=== PATIENT | female | born 1955 | race Caucasian/White ===

== ENCOUNTER 2025-09-13 23:38 | Inpatient (IN) | payer OTHER, SELFPAY ==
[2025-09-13 15:53] VITALS: BP 137/105
[2025-09-13 19:20] VITALS: BMI 21.2
--- NOTE | 2025-09-13 19:20 | ED.GENMED ---
History of Present Illness
General
Chief Complaint: Facial Problem
Source: patient, spouse and family
Exam Limitations: none
Time Seen by Provider: 09/13/25 19:03
Nursing documentation reviewed up to this point in time: agreed with
History of Present Illness
History of Present Illness:
69-year-old female with a past medical history as noted significant for hypertension, hyperlipidemia, diabetes and trigeminal neuralgia who presents to the ER for evaluation of intermittent facial pain consistent with trigeminal neuralgia symptoms.
Patient reports that she has been dealing with trigeminal neuralgia for about 3 years now status post a dental extraction. She says that she has been following with a neurologist through [facility] named Dr. Camp. She says that
initially she was trialed on oxcarbazepine followed by gabapentin both of which failed to control her symptoms before ultimately starting baclofen. She says symptoms had been very well-controlled on baclofen for the past 2 years to the point that a
little over a month ago she requested to titrate down off of this medication. Dose had decreased all the way down to 10 mg twice daily but over the past few weeks she started to notice mild 'twinges' of pain in the right face. Over the past week
she says she has had multiple daily episodes of extreme pain that she describes sharp debilitating pain that last for 5 to 10 minutes in the right side of her face essentially from the corner of the mouth towards the ear. It seems to be set off by
movement of the face, light touch or temperature change. She discussed this increase in her symptoms with her neurologist earlier this week and was told to increase her baclofen to 15 mg 3 times daily which she has been doing for 5 days. Despite
this she is still having severe episodes to the point that she was not able to even drink water or take her medicine today for fear of setting symptoms off. Her family brought her to the ER to be evaluated.
Past History
Past History
ED Past Medical History: Cancer, HTN, NIDDM and Other (ulcerative colitis, breast ca with met to lung with right mastectomy and right lung resection 7 years ago)
ED Past Surgical History: Other
Social History
Tobacco: Non-smoker
Alcohol: None
Drug: None
Personal:
Living: with family
Review of Systems
Review of Systems
All Other Systems: ROS reviewed and negative except as documented in HPI and ROS
Constitutional: Denies fever
EENT: Reports other (Facial pain)
Respiratory: Denies trouble breathing
Cardiac: Denies chest pain
ABD/GI: Denies abdominal pain
Skin: Denies rash
Neurological: Denies dizzy
Phy Exam
Physical Exam
Physical Exam:
General: Awake, alert, oriented x3; no acute distress
Head: Normocephalic, atraumatic
Eyes: Conjunctiva normal, EOMI
Face: No rash or erythema in the area of concern, no reproducible tenderness
Throat: Airway intact, handling secretions, tongue atraumatic, generally good dentition, no oral lesions noted�she does have hesitancy on opening her mouth due to fear of symptoms
Neck: Trachea midline, supple without meningismus, no lymphadenopathy appreciated
Lungs: Breathing comfortably without distress
Heart: Regular rate
Neuro: Cranial nerves grossly intact, speech fluid, motor and sensory grossly intact
Skin: Warm and dry
Extremities: Warm and well-perfused
Scores
Heart Failure Risk
Heart Failure Risk Score: Not Applicable
Heart Score for Chest Pain Patients
STEMI patient?: Not applicable
Withdrawal Assessment of Alcohol
Withdrawal Assessment Completed?: Not applicable
Course
Orders/Labs/Results
Orders:
Orders
09/13/25 19:16
0.9% Sodium Chloride 1000 ml [Nss] 1,000 ml IV BOLUS
09/13/25 19:30
Complete Blood Count/With Diff Urgent
Comprehensive Metabolic Panel Urgent
09/13/25 20:42
Phenytoin Sodium [Dilantin] 250 mg IV NOW STA
09/13/25 23:00
Baclofen [Lioresal] 20 mg PO ONCE ONE
Abnormal Lab Results
09/13/25
19:30
Absolute Neuts (auto) 6.7 H 10^3/uL
(1.4-6.5)
Neutrophils % 76.4 H %
(42.2-75.2)
Lymphocytes % 16.6 L %
(20.5-51.1)
Glucose 119 H mg/dl
(70-99)
Calcium 10.4 H mg/dl
(8.4-10.2)
AST 37 H U/L
(14-36)
Total Protein 8.6 H g/dl
(6.3-8.2)
Albumin 5.2 H g/dl
(3.5-5.0)
09/13/25 19:30
09/13/25 19:30
Vital Signs
Initial and Last Documented VS:
Initial Vital Signs
Temp Pulse Resp BP Pulse Ox
36.8 C 99 16 137/105 96
09/13/25 15:53 09/13/25 15:53 09/13/25 15:53 09/13/25 15:53 09/13/25 15:53
Last Documented Vital Signs
Temp Pulse Resp BP Pulse Ox
36.8 C 85 18 111/89 96
09/13/25 15:53 09/13/25 22:00 09/13/25 22:00 09/13/25 22:00 09/13/25 22:00
MDM/Problems Addressed
Differential Diagnosis Includes:
Trigeminal neuralgia, TMJ, dental infection
MDM/Problems Addressed:
69-year-old female presents with poorly controlled trigeminal neuralgia symptoms�she has been dealing with this for 3 years but had been well-controlled on baclofen to the point of titrating down; unfortunately with down titration of her baclofen
her symptoms have started to flareup more severely which prompted ER visit. Vitals and exam are as above. Fortunately right now she is not having pain but she says that it takes very little to set off a severe episode that usually will last for
about 5 to 10 minutes and is debilitating. Even drinking water to take her medicine this is enough to flare off an episode and so she has not had anything to drink and was not able to take most of her medicine today. Plan to check basic labs and
provide some IV fluids and can trial some IV phenytoin for refractory symptoms. Will discuss the case with neurology for further recommendations.
Discussed with neurology down at [place] on-call for patient's usual neurologist�recommended increasing dose of baclofen to 20 mg 3 times daily to try and control symptoms better. Will plan to reassess symptoms after phenytoin and fluids and if able
to tolerate p.o. can trial increased dose of baclofen.
Symptoms did improve with phenytoin and patient was able to take p.o. baclofen with some water here. Continue to observe for now.
Patient having rebound symptoms despite medications as above. Discussed with neurology for consult. Will admit for continued care. Discussed with hospitalist.
Chronic conditions affecting care:
Trigeminal neuralgia
*Pulse Oximetry
SaO2: 96
Oxygen Mode of Delivery: Room air
Patient hypoxic: no (96%)
*Critical Care Note
Total Time (30-74mins, 75-104mins- exclusive of procedures): Not Applicable
Patient Management
Discussion with other providers: Hospitalist (Discussed with hospitalist) and Tube Lancer (Discussed with neurologist)
Escalation/DeEscalation of care consider admission/obs:
Admission indicated
ED Attending Note
-
Portions of this chart may have been created with voice recognition software.� Occasional wrong word or��sound alike� substitutions may have occurred due to the inherent limitations of voice recognition software.
Discharge Plan
Departure
Patient Disposition: Admit
Date of Disposition: 09/13/25
Time of Disposition: 23:14
Admit to doctor: Joe
Presentation/result/management discussed w/ accepting MD/DO: Hospitalist
Discharge Problem:
Right trigeminal neuralgia
Prescriptions:
No Action
metoprolol succinate 50 MG tablet extended release 24 hr
50 mg PO DAILY
atorvastatin 20 mg Tablet
20 mg PO HS
aspirin 81 mg Tablet,Chewable
81 mg PO HS
Januvia 100 mg Tablet
100 mg PO DAILY
citalopram 10 mg Tablet
10 mg PO DAILY 30 Days Qty: 30 0RF
amlodipine 5 mg Tablet
5 mg PO DAILY
baclofen 10 mg Tablet
10 mg PO TID
rosuvastatin 40 mg Tablet
40 mg PO DAILY
mesalamine 1.2 gram Tablet,Delayed Release (Dr/Ec)
1.2 g PO BID
Rybelsus 7 mg Tablet
7 mg PO DAILY
Referrals:
Shane Mccormick CRNP [Family Provider]
Interventions
Interventions:
*Risk Screen - Suicide Last Done: 09/13/25 15:53
*General Assessment Last Done: 09/13/25 19:21
*Neglect/Abuse Screening Last Done: 09/13/25 19:21
*ED- Fall Risk Assessment Last Done: 09/13/25 19:21
*ED COVID-19 Vaccine History Last Done: 09/13/25 19:21
*ED Influenza Vaccine History Last Done: 09/13/25 19:21
ED- Neurological Assessment Last Done: 09/13/25 19:51
ED-Skin Assessment Last Done: 09/13/25 19:51
Discharge Date and Time
Print Language: MAURITIAN
[2025-09-13 19:31] VITALS: BP 135/87
[2025-09-13] MEDS: NSS 1000 IV (19:33)
[2025-09-13 19:39] LABS: Hematocrit 44.0 % (37.0-47.0); Hemoglobin 15.1 g/dL (12.0-16.0); Mean Corp Hgb Conc. 34.3 g/dL (33.0-37.0); Mean Corpuscular Volume 83.2 fL (81.0-99.0); Nucleated Red Blood Cells % 0 %; Platelet Count 218 10^3/uL (130-400); Red Cell Dist. Width 12.9 % (11.5-14.5)
[2025-09-13 20:00] VITALS: BP 145/84
[2025-09-13 20:10] LABS: ALT (SGPT) 30 U/L (0-35); AST (SGOT) 37 U/L (14-36); Albumin 5.2 g/dl (3.5-5.0); Alkaline Phosphatase 76 U/L (38-126); Blood Urea Nitrogen 14 mg/dl (7-17); Calcium 10.4 mg/dl (8.4-10.2); Carbon Dioxide 27 mmol/L (22-30); Chloride 103 mmol/L (98-107); Estimated Creatinine Clearance 72 ml/min; Glucose 119 mg/dl (70-99); Potassium 3.6 mmol/L (3.5-5.1); Sodium 139 mmol/L (135-145); Total Protein 8.6 g/dl (6.3-8.2); eGFR > 60.00
[2025-09-13] MEDS: DILANTIN 250 MG IV (20:54)
[2025-09-13 21:00] VITALS: BP 147/96
[2025-09-13 22:00] VITALS: BP 111/89
[2025-09-13] MEDS: LIORESAL 20 MG PO (22:25)
[2025-09-13 23:01] VITALS: BP 131/82
--- NOTE | 2025-09-13 23:32 | HPS.HSE ---
Family Physician
-
Family Physician: PRESTON Guerrero
Chief Complaint
-
facial pain
History of Present Illness
69-year-old female past medical history of trigeminal neuralgia, breast cancer, hypertension, diabetes, hyponatremia, ulcerative colitis, presenting for intermittent facial pain consistent with trigeminal neuralgia symptoms. Patient has been
dealing with trigeminal neuralgia for 3 years after dental extraction. She follows with a neurologist at [facility] named Dr. Camp. She was initially trialed on oxy carbamazepine followed by gabapentin both of which failed to control
her symptoms before ultimately starting baclofen. Symptoms had been well-controlled on baclofen for the past 2 years the point where she requested to titrate off baclofen. The dosage was decreased all the way down to 10 mg twice a day but over the
past few weeks she noticed mild twinges of pain in the right face. Over the past week she has had multiple daily episodes of extreme pain described as sharp debilitating pain lasting 5 to 10 minutes on the right side of her face from the corner of
her mouth towards the ear. Pain is triggered by movement of the face, light touch or temperature change. She discussed this with her neurologist earlier in the week and was told to increase her baclofen to 15 mg 3 times daily she has been doing
for 5 days. Despite this she is still having severe symptoms to the point that she was not able to drink water or take medication.
She does not smoke or drink alcohol or use drugs.
At this time patient states that she only gets pain with stimulation of the face. Denies any pain currently.
Medical History
Past Medical History
Past Medical History: Reports Other (trigeminal neuralgia, breast cancer, hypertension, diabetes, hyponatremia, ulcerative colitis)
Past Surgical History: Reports Other (Right Mastectomy / Breast Reconstruction Right Upper Lobe Wedge Resection (metastatic nodule))
Social History
Tobacco: Non-smoker
Alcohol: None
Drug: None
Family History
Family History: Not pertinent
Allergies / Home Medications
Allergies reflects when Allergies were last updated in [employer].
Home Medications with original date entered in [employer]
Allergy/Medication List:
Allergies
Allergy/AdvReac Type Severity Reaction Status Date / Time
amoxicillin Allergy Throat Verified 09/13/25 20:39
swelling
cefdinir Allergy Unknown Verified 09/13/25 19:20
cephalexin Allergy Abdominal Verified 09/13/25 20:39
symptoms
clavulanic acid (From Allergy Nausea / Verified 09/13/25 20:39
Augmentin) Vomiting
levofloxacin Allergy Itching Verified 09/13/25 20:39
moxifloxacin (From Avelox) Allergy Dizziness Verified 09/13/25 20:39
telithromycin (From Ketek) Allergy Nausea / Verified 09/13/25 20:39
Vomiting
Home Medications
metoprolol succinate 50 mg tablet,extended release 24 hr 50 mg PO DAILY Blood pressure 02/20/11
aspirin 81 mg chewable tablet 81 mg PO HS Blood clot prevention/tx 05/28/22
atorvastatin 20 mg tablet 20 mg PO HS High cholesterol 05/28/22
sitagliptin phosphate 100 mg tablet (Januvia) 100 mg PO DAILY Diabetes 05/28/22
citalopram 10 mg tablet 10 mg PO DAILY 30 days #30 tabs 05/30/22
amlodipine 5 mg tablet 5 mg PO DAILY 09/13/25
baclofen 10 mg tablet 10 mg PO TID 09/13/25
mesalamine 1.2 gram tablet,delayed release 1.2 g PO BID 09/13/25
rosuvastatin 40 mg tablet 40 mg PO DAILY 09/13/25
semaglutide 7 mg tablet (Rybelsus) 7 mg PO DAILY 09/13/25
Review of Systems
-
History Source: Patient
A 12 point ROS was completed and negative except as noted: Yes
Constitutional: Reports No Symptoms
EENT: Reports No Symptoms
Respiratory: Reports No Symptoms
Cardiac: Reports No Symptoms
Abdomen/GI: Reports No Symptoms
: Reports No Symptoms
Musculoskeletal: Reports No Symptoms
Skin: Reports No Symptoms
Neurological: Reports No Symptoms
Endocrine: Reports No Symptoms
Hematologic/Lymphatic: Reports No Symptoms
Psych: Reports No Symptoms
Physical Exam
Vital Signs
Vital Signs
Temp Pulse Resp BP Pulse Ox
98.3 F 85 18 111/89 96
09/13/25 15:53 09/13/25 22:00 09/13/25 22:00 09/13/25 22:00 09/13/25 22:00
Physical Exam
General: Well Developed, Well Nourished and No Apparent Distress
HEENT: NormoCephalic, Moist mucous membranes and Atraumatic
Respiratory: Clear
Cardiac: S1/S2 and Regular Rhythm; No Murmur or Rub
GI: Soft, Non Tender, Non Distended and Normal Bowel Sounds; No Organomegaly
Rectal: Deferred by Provider
Musculoskeletal: No Clubbing, No Cyanosis and No Edema
Skin: No Rash
Neuro: Nonfocal/grossly intact
Laboratory Results
-
09/13/25 19:30
09/13/25 19:30
Laboratory Results
Total Bilirubin 1.3 mg/dl (0.2-1.3) 09/13/25 19:30
AST 37 U/L (14-36) H 09/13/25 19:30
ALT 30 U/L (0-35) 09/13/25 19:30
Alkaline Phosphatase 76 U/L (38-126) 09/13/25 19:30
Data Reviewed
-
Lab Data: Labs Reviewed by me
Old Records: Reviewed
Impression/Plan
-
IMPRESSION:
PLAN:
# Trigeminal neuralgia flare secondary to weaning down on baclofen
-ER spoke with neurology at [place] who recommended baclofen 20 mg 3 times daily
- Phenytoin given in ER with significant improvement
-Patient without symptoms at this time after receiving phenytoin and baclofen, she did temporarily have a headache after receiving phenytoin
-can consider second phenytoin dose after 4 hours if needed
- Neurology consulted
Breast cancer
Essential hypertension
- Continue amlodipine
- Continue metoprolol
Type 2 diabetes
- On semaglutide, Januvia, hold for now
- Insulin sliding scale
History of hyponatremia
Ulcerative colitis
- Continue mesalamine
Anxiety/depression
-Continue citalopram
Full code
DVT prophylaxis�heparin
Regular diet
[2025-09-14] VITALS: BP 125/78
[2025-09-14 01:00] VITALS: BP 125/72
[2025-09-14 01:46] VITALS: BP 153/92; BMI 22.0
[2025-09-14 07:11] LABS: Hematocrit 38.1 % (37.0-47.0); Hemoglobin 12.9 g/dL (12.0-16.0); Mean Corp Hgb Conc. 33.9 g/dL (33.0-37.0); Mean Corpuscular Volume 82.6 fL (81.0-99.0); Nucleated Red Blood Cells % 0 %; Platelet Count 195 10^3/uL (130-400); Red Cell Dist. Width 12.8 % (11.5-14.5)
[2025-09-14] MEDS: ASACOL, DELZICOL DR 1200 MG PO (07:36)
[2025-09-14 07:46] VITALS: BP 152/90
[2025-09-14 07:47] LABS: ALT (SGPT) 23 U/L (0-35); AST (SGOT) 27 U/L (14-36); Albumin 4.5 g/dl (3.5-5.0); Alkaline Phosphatase 62 U/L (38-126); Blood Urea Nitrogen 9 mg/dl (7-17); Calcium 9.4 mg/dl (8.4-10.2); Carbon Dioxide 28 mmol/L (22-30); Chloride 102 mmol/L (98-107); Estimated Creatinine Clearance 69 ml/min; Glucose 110 mg/dl (70-99); Potassium 3.8 mmol/L (3.5-5.1); Sodium 136 mmol/L (135-145); Total Protein 7.0 g/dl (6.3-8.2); eGFR > 60.00
[2025-09-14] MEDS: LIORESAL 20 MG PO (08:03)
[2025-09-14] MEDS: HEPARIN 5000 UNITS SC (08:04)
[2025-09-14] MEDS: TOPROL XL 50 MG PO (08:07)
[2025-09-14] MEDS: NORVASC 5 MG PO (08:07)
[2025-09-14] MEDS: CELEXA 10 MG PO (08:09)
[2025-09-14] MEDS: CRESTOR 40 MG PO (08:09)
--- NOTE | 2025-09-14 08:18 | CON.NEURO4 ---
Consultation - Neurology 4
-
CONSULTING PHYSICIAN: Dr. Severiano Schaffer
REFERRING PHYSICIAN: Dr. Dean Mcdaniels
DICTATED BY: Dr. Severiano Schaffer
DATE/TIME OF REQUEST: 09/14/2025
DATE/TIME OF CONSULTATION: 09/14/2025
Reason for Consultation: Trigeminal Neuralgia
ASSESSMENT AND PLAN:
History of Present Illness:
69-year-old female past medical history of trigeminal neuralgia, breast cancer, hypertension, diabetes, hyponatremia, ulcerative colitis, presenting for intermittent facial pain consistent with trigeminal neuralgia symptoms. Patient has been
dealing with trigeminal neuralgia for 3 years after dental extraction. She follows with a neurologist at [facility] named Dr. Camp. She was initially trialed on oxy carbamazepine followed by gabapentin both of which failed to control
her symptoms before ultimately starting baclofen. Symptoms had been well-controlled on baclofen for the past 2 years the point where she requested to titrate off baclofen. The dosage was decreased all the way down to 10 mg twice a day but over the
past few weeks she noticed mild twinges of pain in the right face. Over the past week she has had multiple daily episodes of extreme pain described as sharp debilitating pain lasting 5 to 10 minutes on the right side of her face from the corner of
her mouth towards the ear. Pain is triggered by movement of the face, light touch or temperature change. She discussed this with her neurologist earlier in the week and was told to increase her baclofen to 15 mg 3 times daily she has been doing
for 5 days. Despite this she is still having severe symptoms to the point that she was not able to drink water or take medication.
Past Medical History:
Surgical History:
Family History:
Social History:
Allergies:
Home Medications:
Review of Systems:
Patient denies any fever, headache, chest pain, shortness of breath, GI or symptoms.
�Per the HPI.�All systems are reviewed negative except above.
�- Remove any of these problems that patient may have complained about in the HPI.
�- If patient is unresponsive, intubated or demented, say 'Per the HPI. I am unable to obtain a complete review of systems�because of patient's inability to provide history.'
Vital Signs:
The patient has a blood pressure of ( ) , heart rate ( ) , temperature ( ) , respiratory rate ( ) and a pulse ox of ( ) on
(room air / oxygen by nasal cannula / ventilator).
Physical Exam:
The patient is afebrile, heart sounds S1 and S2 are (regular / irregular), and chest is clear to auscultation bilaterally.
- If not clear, describe.
NIH Stroke Scale (if applicable):
I performed the NIH stroke scale on the patient on (date & time). The patient scored ( ) points on the NIH stroke scale assessment, which were assigned as follows:
Neurologic Examination:
The patient is awake, alert and oriented x 3. (He/She) is able to follow commands and answer questions appropriately. There is no aphasia or dysarthria. On cranial nerve assessment, pupils are 3 mm bilateral, round and reactive to light and
accommodation. Visual hernandez are full. Extraocular movements are intact. Facial sensations are intact and bilaterally symmetrical, there is no facial asymmetry. Hearing is intact bilaterally to normal conversation volume. Tongue palate and uvula
are midline. Sternocleidomastoid strengths are full bilaterally. Motor strengths are 5/5 bilateral upper and lower extremities on medical research [place] scale. There is no drift or involuntary movement noted. Deep tendon reflexes are 2+ bilateral
upper and lower extremities and Babinski is absent bilaterally. Sensations of pain, touch, temperature and vibration are intact and bilaterally symmetrical. There was no extinction noted on double simultaneous stimulation. Coordination is intact by
finger to nose bilaterally.
Lab Results:
Neuro Imaging:
Impression:
(Mr. / MsSamuel) JAMILA OCAMPO is a 69 year old F who has presented to the hospital with (symptoms/chief complaint).
Differentials for the patient's presentation include:
1.
2.
3.
4.
Patient has the following risk factors for their symptoms:
IV Tenecteplase/IAT candidacy
Recommendations:
1.
2.
3.
Discussed patient care with:
[2025-09-14 08:34] LABS: Glucose - Point of Care 125 mg/dl (70-99)
--- NOTE | 2025-09-14 08:49 | W.PN.HOSP.TC ---
Today's Communication/Plan
-
Follow symptoms of trigeminal neuralgia with chewing and eating this morning and if pain-free will discharge patient home
Assessment / Plan
Assessment / Plan
# Trigeminal neuralgia flare secondary to weaning down on baclofen
-ER spoke with neurology at [place] who recommended baclofen 20 mg 3 times daily
- Phenytoin given in ER with significant improvement
-Patient without symptoms at this time after receiving phenytoin and baclofen, she did temporarily have a headache after receiving phenytoin
-can consider second phenytoin dose after 4 hours if needed
- This point remains pain-free. Will see how she does with chewing and eating and if he remains pain-free we will discharge her if not we will give the second dose of phenytoin.
History of breast cancer
Essential hypertension
- Continue amlodipine
- Continue metoprolol
Type 2 diabetes
- On semaglutide, Januvia, hold for now
- Insulin sliding scale
History of hyponatremia
Ulcerative colitis
- Continue mesalamine
Anxiety/depression
-Continue citalopram
Full code
DVT prophylaxis�heparin
Regular diet
Anticipated Discharge: Today
Subjective/Interval History
-
Date of Service: September 14, 2025
Right-sided trigeminal neuralgia pain resolved.
She has not tried chewing or eating yet. Those activities were triggering the pain.
She has awake left-sided headache and sensitive teeth today. No chronic headache syndromes
Last week was terrible because she could not eat and drink because of pain. Routine got disturbed. She was okay to sleep through the night
Objective Data
-
Labs:
Laboratory Results
09/14/25
06:48
WBC 7.7
Hgb 12.9
Hct 38.1
Plt Count 195
Sodium 136
Potassium 3.8
Chloride 102
Carbon Dioxide 28
BUN 9
Creatinine 0.6
Glucose 110 H
Calcium 9.4
Total Bilirubin 1.3
AST 27
ALT 23
Alkaline Phosphatase 62
Vital Signs:
Vital Signs
Temp Pulse Resp BP Pulse Ox
98.3 F 96 18 152/90 98
09/14/25 07:46 09/14/25 07:46 09/14/25 07:46 09/14/25 07:46 09/14/25 07:46
Physical Exam
-
General: Comfortable
Respiratory: Non Labored Respirations; Negative Accessory Resp Muscle Use
Cardiac: Regular Rhythm and S1/S2; Negative Tachycardic
GI: Soft
Neuro: AO x 3, No Motor Deficits and Slurred Speech; Negative Facial Droop
Psych: Calm; Negative Confused or Agitated
Data Reviewed
-
Labs: Labs Reviewed by me
[2025-09-14 09:22] LABS: Glycohemoglobin (HgbA1c) 7.1 % (4.0-5.9)
[2025-09-14 11:47] VITALS: BP 126/76
--- NOTE | 2025-09-14 12:12 | W.DCSUMMARY ---
Discharge Summary
Discharge Data
Date of Admission: 09/13/25
Date of Discharge: 09/14/25
-
Pending Results: No
Hospital Course
Primary diagnosis:
Right trigeminal neuralgia flare
Secondary diagnosis:
Essential hypertension
Type 2 diabetes mellitus
Ulcerative colitis
Hospital course:
Patient with chronic trigeminal neuralgia pain was on baclofen with good control for the last 2 years. With good control of her symptoms attempts were made to wean the baclofen and then she started to have flareup of right trigeminal neuralgia pain.
She was given IV phenytoin dose with resolution of the acute pain. Per her [place] neurology recommendation baclofen was titrated up to 20 mg 3 times daily. She was tolerating a diet without flareup of her symptoms. She was discharged home today.
Discharge Plan
-
Patient Disposition: Home (Routine Discharge)
Discharge Diagnosis/Procedures: Right side trigeminal neuralgia flare
Diet: Diabetic, Carb Controlled
Activity: As tolerated
Driving Restrictions: As prior to admission
Bathing Restrictions: None
Referrals:
Shane Mccormick CRNP [Family Provider] - in less than 1 week
Prescriptions:
New
baclofen 20 mg Tablet
20 mg PO TID Qty: 90 0RF
Continued
metoprolol succinate 50 MG tablet extended release 24 hr
50 mg PO DAILY
atorvastatin 20 mg Tablet
20 mg PO HS
aspirin 81 mg Tablet,Chewable
81 mg PO HS
Januvia 100 mg Tablet
100 mg PO DAILY
citalopram 10 mg Tablet
10 mg PO DAILY 30 Days Qty: 30 0RF
amlodipine 5 mg Tablet
5 mg PO DAILY
rosuvastatin 40 mg Tablet
40 mg PO DAILY
mesalamine 1.2 gram Tablet,Delayed Release (Dr/Ec)
1.2 g PO BID
Rybelsus 7 mg Tablet
7 mg PO DAILY
Discontinued
baclofen 10 mg Tablet
10 mg PO TID
Discharge Orders:
Discharge Patient (As Directed); Ordered 09/14/25
Ordered By: Tan Patino
Discharge Date and Time
Print Language: KHMER
--- NOTE | 2025-09-14 12:14 | CM ---
Addendum entered by Vane Patel 09/14/25 12:20:
PCP: Khai Mccormick
Rx: Leanne/ Rajinder
Original Note:
Met with pt and spouse at bedside. IA completed. IMM given in ED. Independent in ADLs and IADLs. LIves in a bi-level home with her . There is 1 step at the entrance to the home. Full BR on the 2nd floor. There are 7 steps inside the home to
the 2nd floor.DME: shower chair but no DME in use.Hx of VN with [facility] and home infusion agency for IV ABX. No home O2.No insecurities identified. Confirmed PCP, Rx insurance and drug coverage.
Pt is discharged to home with no needs
== END 2025-09-14 12:57 | disposition home or self-care (01) | DRG 74 ==
LOC: 4 EAST ACU 23:38
PROVIDERS: ADMITTING PHYSICIAN Hospitalist; ATTENDING PHYSICIAN Internal Medicine; EMERGENCY PHYSICIAN Emergency Medicine
DX: G50.0 Trigeminal neuralgia (principal); K51.90 Ulcerative colitis, unspecified, without complications; C50.919 Malignant neoplasm of unspecified site of unspecified female breast; I10 Essential (primary) hypertension; E11.9 Type 2 diabetes mellitus without complications; F32.A Depression, unspecified; F41.9 Anxiety disorder, unspecified
CPT/HCPCS: 80053; 82962; 83036; 85025; 96361; 96374; 99284